=== PATIENT | female | born 1955 | race Caucasian/White ===

== ENCOUNTER 2021-07-18 12:43 | Emergency (ER) | payer MEDICARE, OTHER ==
[2021-07-18 17:02] LABS: BASOPHIL 0.8 % (0-2); EOSINOPHIL 2.2 % (0-7); HCT 46.2 % (37.0-47.0); HGB 14.8 g/dl (12.5-16.0); LYMPHOCYTE 17.5 % (15-48); MCH 30.3 pg (25.0-31.0); MCV 94.7 fL (78.0-100.0); MONOCYTE 4.9 % (0-12); MPV 10.7 fL (6.0-9.5); NEUTROPHIL 74.3 % (41-80); NRBC 0; PLT 166 K/uL (150-400); RBC 4.88 M/uL (4.20-5.40); RDW 12.9 % (11.5-14.0); WBC 7.7 K/uL (4.0-10.5)
[2021-07-18 17:11] LABS: INR 1.11 (0.9-1.2); PROTHROMBIN TIME 13.7 SECONDS (11.8-13.4)
[2021-07-18 17:12] LABS: PTT 33.3 SECONDS (24.4-34.7)
[2021-07-18 17:13] LABS: D-DIMER < 0.27 ug/mLFEU (0.00-0.41)
[2021-07-18 17:34] LABS: PRO-BNP 212 pg/mL (<125)
[2021-07-18 18:19] LABS: ALBUMIN 4.1 g/dL (3.4-5.0); ALKALINE PHOSHATASE 76 U/L (46-116); ALT 28 U/L (14-59); AST 28 U/L (15-37); BILIRUBIN - TOTAL 0.7 mg/dL (0.2-1.0); BUN 20 mg/dL (7-18); BUN/CREAT RATIO (CALC) 33.3 RATIO; CHLORIDE 103 mmol/L (98-107); CO2 (BICARBONATE) 24 mmol/L (21-32); CPK 62 U/L (26-192); GLOBULIN (CALCULATION) 3.7 g/dL; GLUCOSE 85 mg/dL (74-106); LDH 237 U/L (81-234); MAGNESIUM 2.2 mg/dL (1.8-2.4); POTASSIUM 4.4 mmol/L (3.5-5.1); TOTAL PROTEIN 7.8 g/dL (6.4-8.2)
[2021-07-18 18:20] LABS: C-REACTIVE PROTEIN < 0.20 mg/dL (<=0.90)
[2021-07-18] MEDS ORDERED: NORCO 5-325 TA1 EACH PO (20:51)
== END 2021-07-18 21:25 | disposition home or self-care (01) ==
LOC: FER 12:43
PROVIDERS: Emergency Medicine
DX: R07.89 Other chest pain (principal)
CPT/HCPCS: 36415; 71101; 71250; 80053; 82550; 82728; 83615; 83735; 83880; 84145; 84484; 85025; 85379; 85610; 85730; 86140; 93005; J2060